=== PATIENT | female | born 1935 | race Caucasian/White ===

== ENCOUNTER → 2018-05-30 | Outpatient (CLI) | payer MEDICARE, OTHER ==
[~2018-05-30] MED LIST: IOPAMIDOL 370 MG/ML 200 ML INFUS..BTL INJ ONE; KEFLEX PO; LEVOTHYROXINE50 MCG PO; LISINOPRIL10 MG PO; PRINIVIL20 MG PO; SODIUM CHLORIDE 0.9% 50ML 50 ML ONE; TYLENOL WITH C1 EACH PO
[2018-05-30 16:25] LABS: BLOOD UREA NITROGEN 14 mg/dL (7-26); BUN/CREATININE RATIO 20 (6-25); CREATININE, SERUM 0.71 mg/dL (0.57-1.11); EST GLOMERULAR FILTRATION RATE > 60 ML/MIN (60-)
--- NOTE | 2018-05-30 17:46 | Diagnostic Imaging Report ---
EXAM: CT Chest WITH contrast INDICATION: Chest pain. Right pleural effusion. COMPARISON: Chest radiograph 01/30/2016 TECHNIQUE: Chest was scanned utilizing a multidetector helical scanner from the lung apex through the level of the adrenal glands without administration of IV contrast. Coronal and sagittal reformations were obtained. Routine protocol was performed. IV CONTRAST: 100 mL of Isovue-370 COMPLICATIONS: None RADIATION DOSE: Total DLP: 541.09 mGy*cm Estimated effective dose: (DLP x 0.014 x size factor) mSv CTDIvol has been reviewed. It is below the limits set by the Radiation Protocol Committee (RPC). Dose modulation, iterative reconstruction, and/or weight based adjustment of the mA/kV was utilized to reduce the radiation dose to as low as reasonably achievable. FINDINGS: LINES/ TUBES: None. LUNGS AND AIRWAYS: Chronic appearing change in the lungs with what appear to be regions of scarring/atelectasis most pronounced in the lung bases. More focal airspace opacity in the peripheral right lower lobe could be due to developing pneumonia in the appropriate clinical setting. Several scattered 3 to 4 mm nodules in the right lung. The largest is best seen on series 3 image 52 in the peripheral posterior right lower lobe. PLEURA: Trace right pleural effusion. No pneumothorax. HEART AND MEDIASTINUM: Small nonspecific right thyroid lobe nodule. No mediastinal, hilar or axillary lymphadenopathy. The heart is normal in size. There is no pericardial effusion. UPPER ABDOMEN: Several too small to characterize hypodensities in the right kidney. Nonspecific nodularity of the right adrenal gland and left adrenal gland. Small hiatal hernia. BONES: The visualized bony thorax is within normal limits. SOFT TISSUES: Unremarkable. IMPRESSION: Chronic appearing change in the lungs with what appear to be regions of scarring/atelectasis most pronounced in the lung bases. More focal airspace opacity in the peripheral right lower lobe could be due to developing pneumonia in the appropriate clinical setting. Several scattered 3 to 4 mm nodules in the right lung. The largest is best seen on series 3 image 52 in the peripheral posterior right lower lobe. Trace right pleural effusion. Follow-up CT scan of the chest is recommended to document clearing. Signed by: Dr. Faisal Du M.D. on 05/30/2018 5:43 PM
== END ==
LOC: CT 15:24
PROVIDERS: ATTEND Family Medicine
DX: J90 Pleural effusion, not elsewhere classified (principal); R07.89 Other chest pain
CPT/HCPCS: 36415; 71260; 82565; 84520; Q9967

== ENCOUNTER → 2018-06-29 | Outpatient (CLI) | payer MEDICARE, OTHER ==
[~2018-06-29] MED LIST changes: -IOPAMIDOL 370 MG/ML 200 ML INFUS..BTL INJ ONE; -SODIUM CHLORIDE 0.9% 50ML 50 ML ONE
--- NOTE | 2018-06-29 12:14 | Diagnostic Imaging Report ---
EXAM: Renal Ultrasound INDICATION: Hypodensities in the right kidney, adrenal gland nodules. COMPARISON: CT chest with contrast 05/30/2018 TECHNIQUE: Transverse and longitudinal images of the kidneys and bladder were obtained. FINDINGS: Right Kidney: Length: 11.4 x 5.9 x 5.3 cm, the renal cortex measures 1.9 cm Appearance: Normal echogenicity. Collecting system: No hydronephrosis Stones: None Cyst/Mass: None Left Kidney: Length: 10.9 x 6.4 x 4.0 cm, the renal cortex measures 1.5 cm Appearance: Normal echogenicity. Collecting system: No hydronephrosis Stones: None Cyst/Mass: None Bladder: Unremarkable in appearance. Bilateral ureteral jets are present. IMPRESSION: Hypodense subcentimeter right renal lesions noted on prior CT, are not visualized on this study. The adrenal gland is not well evaluated by ultrasound. Adrenal protocol CT or MRI would be more sensitive for evaluation. Signed by: Dr. Ebony Mark MD on 06/29/2018 12:11 PM
--- NOTE | 2018-06-29 12:57 | Diagnostic Imaging Report ---
Thyroid ultrasound History: Right thyroid nodules. Comparison: CT chest 05/30/2018. Findings: The thyroid echotexture is heterogeneous. Vascularity is normal. The right lobe measures 4.1 x 1.1 x 1.4 cm The left lobe measures 3.2 x 1.4 x 1.2 cm The isthmus measures 0.2 cm. Right Lobe: 1. In the right inferior pole, there is a 1.5 x 0.6 x 1.0 cm solid, hypoechoic, taller than wide, ill defined margins, with punctate echogenic foci. There is associated doppler flow. Total 10 points, TR 5. Left Lobe: 1. In the left mid pole, there is a 1.2 x 0.6 x 0.8 cm solid, isoechoic, wider than tall, ill-defined margins, with punctate echogenic foci. There is associated doppler flow. Total 6 points, TR 4. Lymph Nodes: No cervical lymph nodes are identified. Parathyroids: Not visualized. IMPRESSION: The right inferior pole thyroid nodule is highly suspicious, and FNA is recommended. The left mid pole thyroid nodule is moderately suspicious, and follow-up ultrasound is recommended in one year. ACR glossary of thyroid rads TI-RADS 1: No focal lesion. TI-RADS 2: Not suspicious. TI-RADS 3: Mildly suspicious (recommend FNA is greater than or equal to 2.5 cm; follow-up at 1, 3, and 5 years if greater than or equal to 1.5 cm) TI-RADS 4: Moderately Suspicious (recommend FNA is greater than or equal to 1.5 cm; follow-up at 1, 2, 3, and 5 years) TI-RADS 5: Highly suspicious (recommend FNA is greater than or equal to 10 mm) TI-RADS 6: Biopsy-proven malignancy Signed by: Dr. Ebony Mark MD on 06/29/2018 12:54 PM
== END ==
LOC: US 10:31
PROVIDERS: ATTEND Family Medicine
DX: E04.2 Nontoxic multinodular goiter (principal); N28.89 Other specified disorders of kidney and ureter; R22.9 Localized swelling, mass and lump, unspecified
CPT/HCPCS: 76536; 76770

== ENCOUNTER → 2018-07-27 | Outpatient (CLI) | payer MEDICARE, OTHER ==
[~2018-07-27] MED LIST changes: +IOPAMIDOL 370 MG/ML 200 ML INFUS..BTL INJ ONE; +SODIUM CHLORIDE 0.9% 50ML 0 ML ONE
--- NOTE | 2018-07-27 12:31 | Diagnostic Imaging Report ---
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 Blood pressure was monitored at 5 minute intervals. Additional Medications: Lidocaine 1% for local anesthesia Estimated blood loss: Minimal Blood products administered: None Specimens: Fine-needle aspiration specimens x5 Implants: None DISCUSSION: Informed consent was obtained and documented in the medical record after discussion of risks and benefits. The patient was placed in the supine position and the neck was prepped and draped in the standard sterile fashion. A suitable percutaneous approach to the right thyroid nodule was identified and 1% lidocaine was infiltrated into the skin and subcutaneous tissues for local anesthesia. Then under continuous sonographic guidance a total of 5 fine needle aspiration specimens were obtained of the nodule using 25-gauge needles. Specimens were submitted to on-site cytopathology personnel. At the conclusion of sampling the needle was removed and a sterile dressing was applied. The patient tolerated the procedure well without immediate complication. FINDINGS: Suspicious right thyroid nodule IMPRESSION: Successful ultrasound-guided fine-needle aspiration of a right thyroid nodule as above. Signed by: Dr. Mani Brennan M.D. on 07/27/2018 12:28 PM
[2018-07-27 12:55] LABS: BLOOD UREA NITROGEN 15 mg/dL (7-26); BUN/CREATININE RATIO 20 (6-25); CREATININE, SERUM 0.75 mg/dL (0.57-1.11); EST GLOMERULAR FILTRATION RATE > 60 ML/MIN (60-)
--- NOTE | 2018-07-27 14:06 | Diagnostic Imaging Report ---
EXAMINATION: CT of the abdomen without contrast. TECHNIQUE: Spiral CT images of the abdomen were performed from the lung bases to the iliac crests. No intravenous contrast was administeredafter review of the adrenal glands on precontrast imaging. COMPARISON: CT chest with contrast 05/30/2018 DISCUSSION: ABSENCE OF INTRAVENOUS CONTRAST DECREASES SENSITIVITY FOR DETECTION OF FOCAL LESIONS AND VASCULAR PATHOLOGY. LOWER THORAX:Subsegmental atelectasis in the dependent lower lobes. HEPATOBILIARY: No focal hepatic lesion or intrahepatic biliary ductal dilatation. Radiopaque calculus versus gallbladder polyp in the region of the fundus. SPLEEN: No splenomegaly. PANCREAS: No focal masses or ductal dilatation. ADRENALS: 1.3 cm nodule in the medial limb of the left adrenal gland, average internal attenuation less than 10 Hounsfield units. 1.3 cm nodule in the lateral limb of the right adrenal gland, average internal attenuation less than 10 Hounsfield units. KIDNEYS/URETERS: 8 mm hyperdense lesion in the left kidney is too small to further characterize but likely to represent a hemorrhagic or proteinaceous cyst. No additional focal renal mass lesion. No hydronephrosis. PERITONEUM/RETROPERITONEUM: No free air or fluid. LYMPH NODES: No retroperitoneal or mesenteric lymphadenopathy. VESSELS: Limited evaluation without intravenous contrast. Atherosclerotic calcification of the abdominal aorta without aneurysmal dilatation. GI TRACT: Innumerable diverticula along the visualized portions of the colon, without wall thickening or adjacent inflammatory change. Large duodenal diverticulum. No small bowel dilatation to suggest obstruction. BONES AND SOFT TISSUE: Multilevel degenerative disc changes of the lumbar spine. No focal soft tissue abnormalities. IMPRESSION: Bilateral benign lipid rich adrenal adenomas. Radiopaque calculus versus gallbladder polyp. Right upper quadrant ultrasound is suggested for further evaluation, which may also allow evaluation of suspected subcentimeter hemorrhagic or proteinaceous right renal cyst. Large bowel diverticulosis without findings of diverticulitis. Atherosclerotic vascular disease. Signed by: Dr. Mani Brennan M.D. on 07/27/2018 2:03 PM
== END ==
LOC: US 10:00
PROVIDERS: ATTEND Family Medicine
DX: E04.1 Nontoxic single thyroid nodule (principal); E27.9 Disorder of adrenal gland, unspecified; K57.30 Diverticulosis of large intestine without perforation or abscess without bleeding
CPT/HCPCS: 10005; 36415; 74150; 82565; 84520; 88172; 88173; Q9967

== ENCOUNTER → 2021-01-11 | Outpatient (CLI) | payer MEDICARE, OTHER ==
[~2021-01-11] MED LIST changes: -IOPAMIDOL 370 MG/ML 200 ML INFUS..BTL INJ ONE; -SODIUM CHLORIDE 0.9% 50ML 0 ML ONE
== END ==
LOC: US 12:33
PROVIDERS: ATTEND Internal Medicine Medical Oncology
DX: R94.5 Abnormal results of liver function studies (principal)
CPT/HCPCS: 76700

== ENCOUNTER 2021-09-24 19:38 | Emergency (ER) | payer MEDICARE, OTHER ==
[~2021-09-24] VITALS: Ht 165.1 cm; Wt 78.9 kg
== END 2021-09-24 22:16 | disposition home or self-care (01) ==
LOC: ER 20:24
DX: S82.091A Other fracture of right patella, initial encounter for closed fracture (principal); S60.511A Abrasion of right hand, initial encounter; S50.312A Abrasion of left elbow, initial encounter; W01.0XXA Fall on same level from slipping, tripping and stumbling without subsequent striking against object, initial encounter; Y93.01 Activity, walking, marching and hiking; Y92.89 Other specified places as the place of occurrence of the external cause; I10 Essential (primary) hypertension; M54.9 Dorsalgia, unspecified; G89.29 Other chronic pain
CPT/HCPCS: 99283